=== PATIENT | male | born 1930 | race American Indian/Alaskan Native ===

== ENCOUNTER 2019-03-20 12:52 | Inpatient (IN) | payer MEDICARE, OTHER ==
[2019-03-20] MEDS ORDERED: HALOPERIDOL LACTATE 5 MG/1 ML INJ IM PRN (13:11)
[2019-03-20] MEDS ORDERED: LORazepam 2 MG/ML VIAL IM PRN (13:11)
[2019-03-20] MEDS ORDERED: traZODone 50 MG TAB PO PRN (13:16)
[2019-03-20 19:04] LABS: Basophils % (Auto) 0.6 % (0.0-1.8); Eosinophils # (Auto) 0.1 K/mm3 (0.0-0.4); Eosinophils % (Auto) 1.8 % (0.0-4.3); Hematocrit 37.8 % (35.5-45.6); Hemoglobin 12.4 gm/dl (11.8-15.2); Lymphocytes # (Auto) 1.5 K/mm3 (1.2-5.4); Mean Corpuscular HGB Conc 33 % (32-34); Mean Corpuscular Volume 90 fl (84-94); Monocytes # (Auto) 0.5 K/mm3 (0.0-0.8); Monocytes % (Auto) 8.9 % (0.0-7.3); Platelet Count 199 K/mm3 (140-440); Red Blood Count 4.21 M/mm3 (3.65-5.03)
[2019-03-20 19:21] LABS: Albumin 3.3 g/dL (3.9-5); BUN/Creatinine Ratio 9; Blood Urea Nitrogen 6 mg/dL (9-20); Calcium 8.8 mg/dL (8.4-10.2); Chol/HDL Ratio 2.28 %; HDL Cholesterol 60 mg/dL (40-59); Hemolysis Index 0; LDL Cholesterol,Direct 75 mg/dL (50-130)
[2019-03-20 19:23] LABS: Alanine Aminotransferase < 5 units/L (7-56)
[2019-03-20] MEDS: MELATONIN 5 MG TAB PO SCH (21:08)
[2019-03-20] MEDS: levETIRAcetam 500 MG TAB PO SCH (21:08)
[2019-03-20] MEDS: DONEPEZIL 5 MG TAB PO SCH (21:08)
[2019-03-20] MEDS: METOPROLOL TARTRATE 25 MG TAB PO SCH (21:08)
[2019-03-20] MEDS: INSULIN LISPRO 100 UNIT/ML SUB-Q SCH (21:09)
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
[2019-03-21] MEDS ORDERED: SITAGLIPTIN PHOSPHATE 50 MG PO SCH (10:00)
[2019-03-21] MEDS: LINAGLIPTIN 5 MG TAB PO SCH (10:28)
[2019-03-21] MEDS: ASPIRIN EC 81 MG TAB PO SCH (10:28)
[2019-03-21] MEDS: levETIRAcetam 500 MG TAB PO SCH ×2 (10:28→21:05)
[2019-03-21] MEDS: RIVAROXABAN 20 MG TAB PO SCH (10:28)
[2019-03-21] MEDS: FAMOTIDINE 20 MG TAB PO SCH (10:28)
[2019-03-21] MEDS: amLODIPine 5 MG TAB PO SCH (10:29)
[2019-03-21] MEDS: INSULIN LISPRO 100 UNIT/ML SUB-Q SCH ×4 (10:30→21:05)
[2019-03-21] MEDS: METOPROLOL TARTRATE 25 MG TAB PO SCH ×2 (10:31→21:05)
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
[2019-03-21] MEDS ORDERED: POTASSIUM CHLORIDE ER 20 MEQ TAB PO ONE (11:15)
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
[2019-03-21] MEDS: DONEPEZIL 5 MG TAB PO SCH (21:04)
[2019-03-21] MEDS: MELATONIN 5 MG TAB PO SCH (21:05)
[2019-03-22] MEDS: INSULIN LISPRO 100 UNIT/ML SUB-Q SCH ×4 (07:44→21:16)
[2019-03-22] MEDS: METOPROLOL TARTRATE 25 MG TAB PO SCH ×2 (09:31→21:17)
[2019-03-22] MEDS: RIVAROXABAN 20 MG TAB PO SCH (09:31)
[2019-03-22] MEDS: FAMOTIDINE 20 MG TAB PO SCH (09:32)
[2019-03-22] MEDS: levETIRAcetam 500 MG TAB PO SCH ×2 (09:32→21:14)
[2019-03-22] MEDS: amLODIPine 5 MG TAB PO SCH (09:32)
[2019-03-22] MEDS: ASPIRIN EC 81 MG TAB PO SCH (09:32)
[2019-03-22] MEDS: LINAGLIPTIN 5 MG TAB PO SCH (09:32)
--- NOTE | 2019-03-22 10:32 | Progress Note ---
Subjective Date of service: 03/22/19 Principal diagnosis: Paranoid Schizophrenia Subjective Comment: The patient was interviewed by me this morning. Medical records reviewed and patient's progress was discussed with unit staff. In my interview with the patient this morning, he stated that he was in a good mood. Still contends that he is fine and that the only reason he is here is because his put him here. Patient claims ever since he was declared 100% disabled "uncle Jt" released his money and benefits to his . The patient believes that he has to defend himself from his and the law, and that he is not being given a fighting chance. The patient is delusional in areas and competent in others. The patients hearing is also failing and is in desperate need of his hearing aids. Review of Symptoms: Constitutional: Negative for weight lost ENT: Negative for stridor Respiratory: Negative for cough or hemoptysis All other systems reviewed and are negative MSE Appearance: Wearing appropriate clothings. Good hygiene Behavior: Pleasant and cooperative. Mood: "Good" Affect: Congruent with stated mood Thought Process: Goal directed Speech: Normal rate. Thought Content Harmfulness Denies SI/HI Hallucinations: patient denies Delusions: ?Paranoia Consciousness: alert. Cognition/Memory: normal. Insight/Judgment: Limited. Objective - Criteria for Continued Treatment Criteria for Continued Treatment: Improving Level of Functioning, Stablizing Level of Functioning, Improving Emotional/Socia - Objective Observation Participation Level: Moderate Assessment and Plan - Patient Problems (1) Paranoid schizophrenia Current Visit: Yes Status: Acute Plan to address problem: Diagnoses: Treatment Plan Patient will be admitted for inpatient psychiatric evaluation, medication adjustment and close monitoring The patient's behavior, mood, sleep and appetite will be closely monitored. Patient will be enrolled in individual and group therapeutic sessions and encouraged to attend. Patient will be provided with a safe and structured environment. Patient's physical health needs will be addressed by the Hospitalist. Social Assessment will be completed and the Brush Polisher will work with patient and family to ensure a suitable and safe disposition Medication adjustment will be made as clinically indicated Usual Wellness Faith/Preservation: - Trazodone 50 mg po QHS & 50 mg po QHS PRN between 10 PM & 2 AM for insomnia - Melatonin 5 mg po QHS to promote circadian rhythm - [place]-3 for brain health, reduce impulsivity, and as adjunctive treatment for mood disorder, continue upon discharge given overall benefits. - B1 prophylaxis with 200 mg po for 5 days The patient agreed on the treatment plan, understood the risk, benefit, alternative treatment, potential consequence of no treatment, and gave informed consent. Medications and Allergies Allergies Allergy/AdvReac Type Severity Reaction Status Date / Time Sulfa (Sulfonamide Allergy Unknown Verified 03/20/19 14:16 Antibiotics) Home Medications Medication Instructions Recorded Confirmed Last Taken Type Amlodipine Besylate [Norvasc] 5 mg PO DAILY 03/20/19 03/20/19 Unknown History Aspirin EC [Halfprin EC] 81 mg PO QDAY 03/20/19 03/20/19 Unknown History Donepezil [Aricept] 5 mg PO HS 03/20/19 03/20/19 Unknown History Famotidine [Pepcid] 20 mg PO DAILY 03/20/19 03/20/19 Unknown History Lispro Insulin [HumaLOG] 0 unit SQ QID 03/20/19 03/20/19 Unknown History Metoprolol [Lopressor] 25 mg PO BID 03/20/19 03/20/19 Unknown History Rivaroxaban [Xarelto] 20 mg PO QDAY 03/20/19 03/20/19 Unknown History Sitagliptin Phosphate [Januvia] 50 mg PO DAILY 03/20/19 03/20/19 Unknown History levETIRAcetam [Keppra TAB] 500 mg PO BID 03/20/19 03/20/19 Unknown History Active Meds: Active Medications Amlodipine Besylate (Amlodipine) 5 mg PO DAILY [facility] Last Admin: 03/22/19 09:32 Dose: 5 mg Documented by: Aspirin (Halfprin Ec) 81 mg PO QDAY [facility] Last Admin: 03/22/19 09:32 Dose: 81 mg Documented by: Donepezil HCl (Aricept) 5 mg PO HS [facility] Last Admin: 03/21/19 21:04 Dose: 5 mg Documented by: Famotidine (Pepcid) 20 mg PO DAILY [facility] Last Admin: 03/22/19 09:32 Dose: 20 mg Documented by: Haloperidol Lactate (Haldol) 5 mg IM Q6H PRN PRN Reason: Agitation Insulin Human Lispro (Humalog) 0 unit SUB-Q ACHS [facility] Last Admin: 03/22/19 07:44 Dose: Not Given Documented by: Levetiracetam (Keppra) 500 mg PO BID [facility] Last Admin: 03/22/19 09:32 Dose: 500 mg Documented by: Linagliptin (Tradjenta) 5 mg PO QDAY [facility] Last Admin: 03/22/19 09:32 Dose: 5 mg Documented by: Lorazepam (Ativan) 1 mg IM Q6H PRN PRN Reason: Agitation Melatonin (Melatonin) 5 mg PO QHS [facility] Last Admin: 03/21/19 21:05 Dose: 5 mg Documented by: Metoprolol Tartrate (Metoprolol) 25 mg PO BID [facility] Last Admin: 03/22/19 09:31 Dose: 25 mg Documented by: Rivaroxaban (Xarelto) 20 mg PO QDAY [facility]; Protocol Last Admin: 03/22/19 09:31 Dose: 20 mg Documented by: Trazodone HCl (Desyrel) 50 mg PO QHS PRN PRN Reason: insomnia Results - Results Labs/Vitals: Laboratory Last Values WBC 5.7 K/mm3 (4.5-11.0) 03/20/19 18:25 RBC 4.21 M/mm3 (3.65-5.03) 03/20/19 18:25 Hgb 12.4 gm/dl (11.8-15.2) 03/20/19 18:25 Hct 37.8 % (35.5-45.6) 03/20/19 18:25 MCV 90 fl (84-94) 03/20/19 18:25 MCH 30 pg (28-32) 03/20/19 18:25 MCHC 33 % (32-34) 03/20/19 18:25 RDW 16.0 % (13.2-15.2) H 03/20/19 18:25 Plt Count 199 K/mm3 (140-440) 03/20/19 18:25 Lymph % (Auto) 26.0 % (13.4-35.0) 03/20/19 18:25 [place] % (Auto) 8.9 % (0.0-7.3) H 03/20/19 18:25 Eos % (Auto) 1.8 % (0.0-4.3) 03/20/19 18:25 Baso % (Auto) 0.6 % (0.0-1.8) 03/20/19 18:25 Lymph # 1.5 K/mm3 (1.2-5.4) 03/20/19 18:25 [place] # 0.5 K/mm3 (0.0-0.8) 03/20/19 18:25 Eos # 0.1 K/mm3 (0.0-0.4) 03/20/19 18:25 Baso # 0.0 K/mm3 (0.0-0.1) 03/20/19 18:25 Seg Neutrophils % 62.7 % (40.0-70.0) 03/20/19 18:25 Seg Neutrophils # 3.6 K/mm3 (1.8-7.7) 03/20/19 18:25 Sodium 142 mmol/L (137-145) 03/20/19 18:25 Potassium 3.4 mmol/L (3.6-5.0) L 03/22/19 08:07 Chloride 102.6 mmol/L (98-107) 03/20/19 18:25 Carbon Dioxide 26 mmol/L (22-30) 03/20/19 18:25 Anion Gap 16 mmol/L 03/20/19 18:25 BUN 6 mg/dL (9-20) L 03/20/19 18:25 Creatinine 0.7 mg/dL (0.8-1.5) L 03/20/19 18:25 Estimated GFR > 60 ml/min 03/20/19 18:25 BUN/Creatinine Ratio 9 % 03/20/19 18:25 Glucose 167 mg/dL (75-100) H 03/20/19 18:25 POC Glucose 78 (70-105) 03/22/19 06:26 Hemoglobin A1c 5.4 % (4-6) 03/20/19 18:25 Calcium 8.8 mg/dL (8.4-10.2) 03/20/19 18:25 Total Bilirubin 0.60 mg/dL (0.1-1.2) 03/20/19 18:25 AST 11 units/L (5-40) 03/20/19 18:25 ALT < 5 units/L (7-56) L 03/20/19 18:25 Alkaline Phosphatase 87 units/L (35-129) 03/20/19 18:25 Total Protein 7.0 g/dL (6.3-8.2) 03/20/19 18:25 Albumin 3.3 g/dL (3.9-5) L 03/20/19 18:25 Albumin/Globulin Ratio 0.9 % 03/20/19 18:25 Triglycerides 58 mg/dL (2-149) 03/20/19 18:25 Cholesterol 137 mg/dL (50-199) 03/20/19 18:25 LDL Cholesterol Direct 75 mg/dL (50-130) 03/20/19 18:25 HDL Cholesterol 60 mg/dL (40-59) H 03/20/19 18:25 Cholesterol/HDL Ratio 2.28 % 03/20/19 18:25 Last Vital Signs Temp 98.3 F 03/22/19 08:57 Pulse 73 03/22/19 09:32 Resp 16 03/22/19 08:57 BP 140/70 03/22/19 09:32 Pulse Ox 97 03/22/19 08:57
[2019-03-22] MEDS: risperiDONE 0.25 MG TAB PO SCH ×2 (12:26→21:14)
[2019-03-22] MEDS: THIAMINE 100 MG TAB PO SCH (12:26)
[2019-03-22] MEDS: OMEGA-3 FATTY ACIDS/FISH OIL 1 GRAM CAP PO SCH ×2 (12:27→21:14)
[2019-03-22] MEDS: DONEPEZIL 5 MG TAB PO SCH (21:14)
[2019-03-22] MEDS: MELATONIN 5 MG TAB PO SCH (21:14)
[2019-03-23] MEDS: INSULIN LISPRO 100 UNIT/ML SUB-Q SCH (07:15)
[2019-03-23] MEDS ORDERED: POTASSIUM CHLORIDE ER 20 MEQ TAB PO ONE (09:00)
[2019-03-23] MEDS: ASPIRIN EC 81 MG TAB PO SCH (09:03)
[2019-03-23] MEDS: METOPROLOL TARTRATE 25 MG TAB PO SCH ×2 (09:03→21:14)
[2019-03-23] MEDS: risperiDONE 0.25 MG TAB PO SCH ×2 (09:03→21:14)
[2019-03-23] MEDS: amLODIPine 5 MG TAB PO SCH (09:04)
[2019-03-23] MEDS: FAMOTIDINE 20 MG TAB PO SCH (09:04)
[2019-03-23] MEDS: THIAMINE 100 MG TAB PO SCH (09:04)
[2019-03-23] MEDS: levETIRAcetam 500 MG TAB PO SCH ×2 (09:04→21:14)
[2019-03-23] MEDS: RIVAROXABAN 20 MG TAB PO SCH (09:05)
[2019-03-23] MEDS: LINAGLIPTIN 5 MG TAB PO SCH (09:05)
[2019-03-23] MEDS: OMEGA-3 FATTY ACIDS/FISH OIL 1 GRAM CAP PO SCH ×2 (09:05→21:13)
--- NOTE | 2019-03-23 11:10 | Progress Note ---
Subjective Date of service: 03/23/19 Principal diagnosis: Paranoid Schizophrenia Subjective Comment: The patient was interviewed by me this morning. Medical records reviewed and patient's progress was discussed with unit staff. Per Nursing Staff, cjient was calm and cooperative all evening. He was medication compliant. After getting warm the patient slept all night. In my interview with the patient this morning, Mr. Mendoza stated that he was feeling great, slept well and his appetite is good.The patient is very competent and engaging. Review of Symptoms: Constitutional: Negative for weight lost ENT: Negative for stridor Respiratory: Negative for cough or hemoptysis All other systems reviewed and are negative MSE Appearance: Wearing appropriate clothings. Good hygiene Behavior: Pleasant and cooperative. Mood: "Good" Affect: Congruent with stated mood Thought Process: Goal directed Speech: Normal rate. Thought Content Harmfulness Denies SI/HI Hallucinations: patient denies Delusions: None elicited Consciousness: alert. Cognition/Memory: normal. Insight/Judgment: Fair Objective - Criteria for Continued Treatment Criteria for Continued Treatment: Stablizing Level of Functioning - Objective Observation Participation Level: Moderate Assessment and Plan - Patient Problems (1) Paranoid schizophrenia Current Visit: Yes Status: Acute Plan to address problem: Diagnoses: Treatment Plan Patient will be admitted for inpatient psychiatric evaluation, medication adjustment and close monitoring The patient's behavior, mood, sleep and appetite will be closely monitored. Patient will be enrolled in individual and group therapeutic sessions and encouraged to attend. Patient will be provided with a safe and structured environment. Patient's physical health needs will be addressed by the Hospitalist. Social Assessment will be completed and the Maintenance Tech will work with patient and family to ensure a suitable and safe disposition Medication adjustment will be made as clinically indicated Usual Wellness Sikhism/Preservation: - Trazodone 50 mg po QHS & 50 mg po QHS PRN between 10 PM & 2 AM for insomnia - Melatonin 5 mg po QHS to promote circadian rhythm - [place]-3 for brain health, reduce impulsivity, and as adjunctive treatment for mood disorder, continue upon discharge given overall benefits. The patient agreed on the treatment plan, understood the risk, benefit, alternative treatment, potential consequence of no treatment, and gave informed consent. Medications and Allergies Allergies Allergy/AdvReac Type Severity Reaction Status Date / Time Sulfa (Sulfonamide Allergy Unknown Verified 03/20/19 14:16 Antibiotics) Home Medications Medication Instructions Recorded Confirmed Last Taken Type Amlodipine Besylate [Norvasc] 5 mg PO DAILY 03/20/19 03/20/19 Unknown History Aspirin EC [Halfprin EC] 81 mg PO QDAY 03/20/19 03/20/19 Unknown History Donepezil [Aricept] 5 mg PO HS 03/20/19 03/20/19 Unknown History Famotidine [Pepcid] 20 mg PO DAILY 03/20/19 03/20/19 Unknown History Lispro Insulin [HumaLOG] 0 unit SQ QID 03/20/19 03/20/19 Unknown History Metoprolol [Lopressor] 25 mg PO BID 03/20/19 03/20/19 Unknown History Rivaroxaban [Xarelto] 20 mg PO QDAY 03/20/19 03/20/19 Unknown History Sitagliptin Phosphate [Januvia] 50 mg PO DAILY 03/20/19 03/20/19 Unknown History levETIRAcetam [Keppra TAB] 500 mg PO BID 03/20/19 03/20/19 Unknown History Active Meds: Active Medications Amlodipine Besylate (Amlodipine) 5 mg PO DAILY [facility] Last Admin: 03/23/19 09:04 Dose: Not Given Documented by: Aspirin (Halfprin Ec) 81 mg PO QDAY [facility] Last Admin: 03/23/19 09:03 Dose: 81 mg Documented by: Donepezil HCl (Aricept) 5 mg PO [facility] Last Admin: 03/22/19 21:14 Dose: 5 mg Documented by: Famotidine (Pepcid) 20 mg PO DAILY [facility] Last Admin: 03/23/19 09:04 Dose: 20 mg Documented by: Fish Oil (Fish Oil) 2,000 mg PO BID [facility] Last Admin: 03/23/19 09:05 Dose: 2,000 mg Documented by: Haloperidol Lactate (Haldol) 5 mg IM Q6H PRN PRN Reason: Agitation Insulin Human Regular (Humulin R) 0 units SUB-Q [facility]; Protocol Levetiracetam (Keppra) 500 mg PO BID [facility] Last Admin: 03/23/19 09:04 Dose: 500 mg Documented by: Linagliptin (Tradjenta) 5 mg PO QDAY [facility] Last Admin: 03/23/19 09:05 Dose: 5 mg Documented by: Lorazepam (Ativan) 1 mg IM Q6H PRN PRN Reason: Agitation Melatonin (Melatonin) 5 mg PO QHS [facility] Last Admin: 03/22/19 21:14 Dose: 5 mg Documented by: Metoprolol Tartrate (Metoprolol) 25 mg PO BID [facility] Last Admin: 03/23/19 09:03 Dose: 25 mg Documented by: Risperidone (Risperdal) 0.5 mg PO BID [facility] Last Admin: 03/23/19 09:03 Dose: 0.5 mg Documented by: Rivaroxaban (Xarelto) 20 mg PO QDAY [facility]; Protocol Last Admin: 03/23/19 09:05 Dose: 20 mg Documented by: Thiamine HCl (Vitamin B-1) 100 mg PO QDAY [facility] Last Admin: 03/23/19 09:04 Dose: 100 mg Documented by: Trazodone HCl (Desyrel) 50 mg PO QHS PRN PRN Reason: insomnia Results - Results Labs/Vitals: Laboratory Last Values WBC 5.7 K/mm3 (4.5-11.0) 03/20/19 18:25 RBC 4.21 M/mm3 (3.65-5.03) 03/20/19 18:25 Hgb 12.4 gm/dl (11.8-15.2) 03/20/19 18:25 Hct 37.8 % (35.5-45.6) 03/20/19 18:25 MCV 90 fl (84-94) 03/20/19 18:25 MCH 30 pg (28-32) 03/20/19 18:25 MCHC 33 % (32-34) 03/20/19 18:25 RDW 16.0 % (13.2-15.2) H 03/20/19 18:25 Plt Count 199 K/mm3 (140-440) 03/20/19 18:25 Lymph % (Auto) 26.0 % (13.4-35.0) 03/20/19 18:25 [place] % (Auto) 8.9 % (0.0-7.3) H 03/20/19 18:25 Eos % (Auto) 1.8 % (0.0-4.3) 03/20/19 18:25 Baso % (Auto) 0.6 % (0.0-1.8) 03/20/19 18:25 Lymph # 1.5 K/mm3 (1.2-5.4) 03/20/19 18:25 [place] # 0.5 K/mm3 (0.0-0.8) 03/20/19 18:25 Eos # 0.1 K/mm3 (0.0-0.4) 03/20/19 18:25 Baso # 0.0 K/mm3 (0.0-0.1) 03/20/19 18:25 Seg Neutrophils % 62.7 % (40.0-70.0) 03/20/19 18:25 Seg Neutrophils # 3.6 K/mm3 (1.8-7.7) 03/20/19 18:25 Sodium 142 mmol/L (137-145) 03/20/19 18:25 Potassium 3.4 mmol/L (3.6-5.0) L 03/22/19 08:07 Chloride 102.6 mmol/L (98-107) 03/20/19 18:25 Carbon Dioxide 26 mmol/L (22-30) 03/20/19 18:25 Anion Gap 16 mmol/L 03/20/19 18:25 BUN 6 mg/dL (9-20) L 03/20/19 18:25 Creatinine 0.7 mg/dL (0.8-1.5) L 03/20/19 18:25 Estimated GFR > 60 ml/min 03/20/19 18:25 BUN/Creatinine Ratio 9 % 03/20/19 18:25 Glucose 167 mg/dL (75-100) H 03/20/19 18:25 POC Glucose 86 (70-105) 03/23/19 07:23 Hemoglobin A1c 5.4 % (4-6) 03/20/19 18:25 Calcium 8.8 mg/dL (8.4-10.2) 03/20/19 18:25 Total Bilirubin 0.60 mg/dL (0.1-1.2) 03/20/19 18:25 AST 11 units/L (5-40) 03/20/19 18:25 ALT < 5 units/L (7-56) L 03/20/19 18:25 Alkaline Phosphatase 87 units/L (35-129) 03/20/19 18:25 Total Protein 7.0 g/dL (6.3-8.2) 03/20/19 18:25 Albumin 3.3 g/dL (3.9-5) L 03/20/19 18:25 Albumin/Globulin Ratio 0.9 % 03/20/19 18:25 Triglycerides 58 mg/dL (2-149) 03/20/19 18:25 Cholesterol 137 mg/dL (50-199) 03/20/19 18:25 LDL Cholesterol Direct 75 mg/dL (50-130) 03/20/19 18:25 HDL Cholesterol 60 mg/dL (40-59) H 03/20/19 18:25 Cholesterol/HDL Ratio 2.28 % 03/20/19 18:25 Last Vital Signs Temp 98.3 F 03/23/19 08:28 Pulse 67 03/23/19 09:04 Resp 16 03/23/19 08:28 BP 99/53 03/23/19 09:04 Pulse Ox 99 03/23/19 08:28
--- NOTE | 2019-03-23 11:22 | XRay Report ---
CHEST 2 VIEWS INDICATION: TB Screening for NH placement. COMPARISON: None FINDINGS: Support devices: None. Heart: Within normal limits. Lungs/pleura: No acute air space or interstitial disease. No pneumothorax. Additional findings: None. IMPRESSION: Unremarkable chest films. No evidence for primary or reactive tuberculosis on chest x-ray. Signer Name: Pranav Woods Jr, MD Signed: 03/23/2019 11:17 AM Workstation Name: [id number]
[2019-03-23] MEDS: INSULIN REGULAR, HUMAN 100 UNITS/1 ML SUB-Q SCH ×3 (12:04→21:16)
[2019-03-23] MEDS: DONEPEZIL 5 MG TAB PO SCH (21:13)
[2019-03-23] MEDS: MELATONIN 5 MG TAB PO SCH (21:14)
[2019-03-24] MEDS: LINAGLIPTIN 5 MG TAB PO SCH (11:29)
[2019-03-24] MEDS: FAMOTIDINE 20 MG TAB PO SCH (11:29)
[2019-03-24] MEDS: OMEGA-3 FATTY ACIDS/FISH OIL 1 GRAM CAP PO SCH ×2 (11:29→21:16)
[2019-03-24] MEDS: risperiDONE 0.25 MG TAB PO SCH ×2 (11:29→21:15)
[2019-03-24] MEDS: THIAMINE 100 MG TAB PO SCH (11:29)
[2019-03-24] MEDS: amLODIPine 5 MG TAB PO SCH (11:30)
[2019-03-24] MEDS: levETIRAcetam 500 MG TAB PO SCH ×2 (11:30→21:16)
[2019-03-24] MEDS: ASPIRIN EC 81 MG TAB PO SCH (11:30)
[2019-03-24] MEDS: METOPROLOL TARTRATE 25 MG TAB PO SCH ×2 (11:30→21:16)
[2019-03-24] MEDS: INSULIN REGULAR, HUMAN 100 UNITS/1 ML SUB-Q SCH ×2 (11:32→21:46)
[2019-03-24] MEDS: RIVAROXABAN 20 MG TAB PO SCH (11:33)
--- NOTE | 2019-03-24 17:06 | Progress Note ---
Assessment and Plan Assessment and plan: --Paranoid schizophrenia Management per psych --hypokalemia, repleted --Dementia: Continue supportive care --HTN; moderate control Stable on current antihypertensives and PRN medications --History of CVA ; stable --Atrial fib: Rate controlled Continue current beta-blockers Chronic anticoagulation with Xarelto --Type II DM; Accu-Chek sliding scale coverage ADA diet Insulin as needed --Seizure; seizure precautions Antiepileptic medications Continue current management Plan of care reviewed with the patient and his nurse Rest of the management per psych History Interval history: Patient seen in the activity room and examined medical records reviewed,Wants to go home Patient feels slightly better no new complaints Vital signs noted Hospitalist Physical - Constitutional Vitals: Temp Pulse Resp BP Pulse Ox 97.9 F 88 16 124/69 97 03/24/19 09:12 03/24/19 11:30 03/24/19 09:12 03/24/19 11:30 03/24/19 09:12 General appearance: Present: no acute distress, well-nourished - EENT Eyes: Present: PERRL, EOM intact - Neck Neck: Present: supple, normal ROM - Respiratory Respiratory effort: normal Respiratory: bilateral: diminished, negative: rales, rhonchi, wheezing - Cardiovascular Rhythm: regular Heart Sounds: Present: S1 & S2 - Extremities Extremities: no ischemia, No edema - Abdominal General gastrointestinal: soft, non-tender, non-distended, normal bowel sounds - Integumentary Integumentary: Present: clear, warm - Psychiatric Psychiatric: appropriate mood/affect, cooperative - Neurologic Neurologic: moves all extremities Results - Labs CBC & Chem 7: 03/20/19 18:25 03/22/19 08:07 Labs: Laboratory Last Values WBC 5.7 K/mm3 (4.5-11.0) 03/20/19 18:25 RBC 4.21 M/mm3 (3.65-5.03) 03/20/19 18:25 Hgb 12.4 gm/dl (11.8-15.2) 03/20/19 18:25 Hct 37.8 % (35.5-45.6) 03/20/19 18:25 MCV 90 fl (84-94) 03/20/19 18:25 MCH 30 pg (28-32) 03/20/19 18:25 MCHC 33 % (32-34) 03/20/19 18:25 RDW 16.0 % (13.2-15.2) H 03/20/19 18:25 Plt Count 199 K/mm3 (140-440) 03/20/19 18:25 Lymph % (Auto) 26.0 % (13.4-35.0) 03/20/19 18:25 [place] % (Auto) 8.9 % (0.0-7.3) H 03/20/19 18:25 Eos % (Auto) 1.8 % (0.0-4.3) 03/20/19 18:25 Baso % (Auto) 0.6 % (0.0-1.8) 03/20/19 18:25 Lymph # 1.5 K/mm3 (1.2-5.4) 03/20/19 18:25 [place] # 0.5 K/mm3 (0.0-0.8) 03/20/19 18:25 Eos # 0.1 K/mm3 (0.0-0.4) 03/20/19 18:25 Baso # 0.0 K/mm3 (0.0-0.1) 03/20/19 18:25 Seg Neutrophils % 62.7 % (40.0-70.0) 03/20/19 18:25 Seg Neutrophils # 3.6 K/mm3 (1.8-7.7) 03/20/19 18:25 Sodium 142 mmol/L (137-145) 03/20/19 18:25 Potassium 3.4 mmol/L (3.6-5.0) L 03/22/19 08:07 Chloride 102.6 mmol/L (98-107) 03/20/19 18:25 Carbon Dioxide 26 mmol/L (22-30) 03/20/19 18:25 Anion Gap 16 mmol/L 03/20/19 18:25 BUN 6 mg/dL (9-20) L 03/20/19 18:25 Creatinine 0.7 mg/dL (0.8-1.5) L 03/20/19 18:25 Estimated GFR > 60 ml/min 03/20/19 18:25 BUN/Creatinine Ratio 9 % 03/20/19 18:25 Glucose 167 mg/dL (75-100) H 03/20/19 18:25 POC Glucose 150 (70-105) H 03/24/19 16:44 Hemoglobin A1c 5.4 % (4-6) 03/20/19 18:25 Calcium 8.8 mg/dL (8.4-10.2) 03/20/19 18:25 Total Bilirubin 0.60 mg/dL (0.1-1.2) 03/20/19 18:25 AST 11 units/L (5-40) 03/20/19 18:25 ALT < 5 units/L (7-56) L 03/20/19 18:25 Alkaline Phosphatase 87 units/L (35-129) 03/20/19 18:25 Total Protein 7.0 g/dL (6.3-8.2) 03/20/19 18:25 Albumin 3.3 g/dL (3.9-5) L 03/20/19 18:25 Albumin/Globulin Ratio 0.9 % 03/20/19 18:25 Triglycerides 58 mg/dL (2-149) 03/20/19 18:25 Cholesterol 137 mg/dL (50-199) 03/20/19 18:25 LDL Cholesterol Direct 75 mg/dL (50-130) 03/20/19 18:25 HDL Cholesterol 60 mg/dL (40-59) H 03/20/19 18:25 Cholesterol/HDL Ratio 2.28 % 03/20/19 18:25 Active Medications - Current Medications Current Medications: Generic Name Dose Route Start Last Admin Trade Name Freq PRN Reason Stop Dose Admin Amlodipine Besylate 5 mg 03/21/19 10:00 03/24/19 11:30 Amlodipine PO 5 mg DAILY [facility] Administration Aspirin 81 mg 03/21/19 10:00 03/24/19 11:30 Halfprin Ec PO 81 mg QDAY [facility] Administration Donepezil HCl 5 mg 03/20/19 22:00 03/23/19 21:13 Aricept PO 5 mg HS [facility] Administration Famotidine 20 mg 03/21/19 10:00 03/24/19 11:29 Pepcid PO 20 mg DAILY [facility] Administration Fish Oil 2,000 mg 03/22/19 12:00 03/24/19 11:29 Fish Oil PO 2,000 mg BID [facility] Administration Haloperidol Lactate 5 mg 03/20/19 13:11 Haldol IM Q6H PRN Agitation Insulin Human Regular 0 units 03/23/19 11:30 03/24/19 11:32 Humulin R SUB-Q Not Given ACHS [facility] Protocol Levetiracetam 500 mg 03/20/19 22:00 03/24/19 11:30 Keppra PO 500 mg BID [facility] Administration Linagliptin 5 mg 03/21/19 10:00 03/24/19 11:29 Tradjenta PO 5 mg QDAY [facility] Administration Lorazepam 1 mg 03/20/19 13:11 Ativan IM Q6H PRN Agitation Melatonin 5 mg 03/20/19 22:00 03/23/19 21:14 Melatonin PO 5 mg QHS [facility] Administration Metoprolol Tartrate 25 mg 03/20/19 22:00 03/24/19 11:30 Metoprolol PO 25 mg BID [facility] Administration Risperidone 0.5 mg 03/22/19 12:00 03/24/19 11:29 Risperdal PO 0.5 mg BID [facility] Administration Rivaroxaban 20 mg 03/21/19 10:00 03/24/19 11:33 Xarelto PO 20 mg QDAY [facility] Administration Protocol Thiamine HCl 100 mg 03/22/19 12:00 03/24/19 11:29 Vitamin B-1 PO 100 mg QDAY [facility] Administration Trazodone HCl 50 mg 03/20/19 13:16 Desyrel PO QHS PRN insomnia
[2019-03-24] MEDS: MELATONIN 5 MG TAB PO SCH (21:15)
[2019-03-24] MEDS: DONEPEZIL 5 MG TAB PO SCH (21:16)
--- NOTE | 2019-03-25 07:36 | Progress Note ---
Subjective Date of service: 03/24/19 Principal diagnosis: Paranoid Schizophrenia Subjective Comment: The patient was interviewed by me this morning. Medical records reviewed and patient's progress was discussed with unit staff. Per Nursing Staff, cjient was calm and cooperative all evening. He was medication compliant. After getting warm the patient slept all night. In my interview with the patient this morning, Mr. Mendoza stated that he was feeling great, slept well and his appetite is good.The patient is very competent and engaging. Review of Symptoms: Constitutional: Negative for weight lost ENT: Negative for stridor Respiratory: Negative for cough or hemoptysis All other systems reviewed and are negative MSE Appearance: Wearing appropriate clothings. Good hygiene Behavior: Pleasant and cooperative. Mood: "Good" Affect: Congruent with stated mood Thought Process: Goal directed Speech: Normal rate. Thought Content Harmfulness Denies SI/HI Hallucinations: patient denies Delusions: None elicited Consciousness: alert. Cognition/Memory: normal. Insight/Judgment: Fair Objective - Criteria for Continued Treatment Criteria for Continued Treatment: Stablizing Level of Functioning - Mental Status Mental Status: Alert - Objective Observation Participation Level: Full Assessment and Plan - Patient Problems (1) Paranoid schizophrenia Current Visit: Yes Status: Acute Plan to address problem: Diagnoses: Treatment Plan Patient will be admitted for inpatient psychiatric evaluation, medication adjustment and close monitoring The patient's behavior, mood, sleep and appetite will be closely monitored. Patient will be enrolled in individual and group therapeutic sessions and encouraged to attend. Patient will be provided with a safe and structured environment. Patient's physical health needs will be addressed by the Hospitalist. Social Assessment will be completed and the Interlibrary Loan Specialist will work with patient and family to ensure a suitable and safe disposition Medication adjustment will be made as clinically indicated The patient agreed on the treatment plan, understood the risk, benefit, alternative treatment, potential consequence of no treatment, and gave informed consent. Medications and Allergies Allergies Allergy/AdvReac Type Severity Reaction Status Date / Time Sulfa (Sulfonamide Allergy Unknown Verified 03/20/19 14:16 Antibiotics) Home Medications Medication Instructions Recorded Confirmed Last Taken Type Lispro Insulin [HumaLOG] 0 unit SQ QID 03/20/19 03/20/19 Unknown History Amlodipine Besylate [Norvasc] 5 mg PO DAILY #30 03/24/19 Unknown Rx Aspirin EC [Halfprin EC] 81 mg PO QDAY #30 03/24/19 Unknown Rx Donepezil [Aricept] 5 mg PO HS #30 03/24/19 Unknown Rx Famotidine [Pepcid] 20 mg PO DAILY #30 03/24/19 Unknown Rx Melatonin [Melatonin 5MG TAB] 5 mg PO QHS #30 tablet 03/24/19 Unknown Rx Metoprolol [Lopressor TAB] 25 mg PO BID #30 03/24/19 Unknown Rx [place]-3 Fatty Acids/Fish Oil [Fish 2,000 mg PO BID #120 capsule 03/24/19 Unknown Rx Oil] Rivaroxaban [Xarelto] 20 mg PO QDAY #30 03/24/19 Unknown Rx Sitagliptin Phosphate [Januvia] 50 mg PO DAILY #30 03/24/19 Unknown Rx Thiamine [Vitamin B-1] 100 mg PO QDAY #30 tablet 03/24/19 Unknown Rx levETIRAcetam [Keppra TAB] 500 mg PO BID #60 03/24/19 Unknown Rx risperiDONE [RisperDAL] 0.5 mg PO BID #60 tablet 03/24/19 Unknown Rx traZODone [Desyrel] 50 mg PO QHS PRN #30 tablet 03/24/19 Unknown Rx Active Meds: Active Medications Amlodipine Besylate (Amlodipine) 5 mg PO DAILY [facility] Last Admin: 03/24/19 11:30 Dose: 5 mg Documented by: Aspirin (Halfprin Ec) 81 mg PO QDAY [facility] Last Admin: 03/24/19 11:30 Dose: 81 mg Documented by: Donepezil HCl (Aricept) 5 mg PO HS [facility] Last Admin: 03/24/19 21:16 Dose: 5 mg Documented by: Famotidine (Pepcid) 20 mg PO DAILY [facility] Last Admin: 03/24/19 11:29 Dose: 20 mg Documented by: Fish Oil (Fish Oil) 2,000 mg PO BID [facility] Last Admin: 03/24/19 21:16 Dose: 2,000 mg Documented by: Haloperidol Lactate (Haldol) 5 mg IM Q6H PRN PRN Reason: Agitation Insulin Human Regular (Humulin R) 0 units SUB-Q ACHS [facility]; Protocol Last Admin: 03/24/19 21:46 Dose: Not Given Documented by: Levetiracetam (Keppra) 500 mg PO BID [facility] Last Admin: 03/24/19 21:16 Dose: 500 mg Documented by: Linagliptin (Tradjenta) 5 mg PO QDAY [facility] Last Admin: 03/24/19 11:29 Dose: 5 mg Documented by: Lorazepam (Ativan) 1 mg IM Q6H PRN PRN Reason: Agitation Melatonin (Melatonin) 5 mg PO QHS [facility] Last Admin: 03/24/19 21:15 Dose: 5 mg Documented by: Metoprolol Tartrate (Metoprolol) 25 mg PO BID [facility] Last Admin: 03/24/19 21:16 Dose: 25 mg Documented by: Risperidone (Risperdal) 0.5 mg PO BID [facility] Last Admin: 03/24/19 21:15 Dose: 0.5 mg Documented by: Rivaroxaban (Xarelto) 20 mg PO QDAY [facility]; Protocol Last Admin: 03/24/19 11:33 Dose: 20 mg Documented by: Thiamine HCl (Vitamin B-1) 100 mg PO QDAY [facility] Last Admin: 03/24/19 11:29 Dose: 100 mg Documented by: Trazodone HCl (Desyrel) 50 mg PO QHS PRN PRN Reason: insomnia Results - Results Labs/Vitals: Laboratory Last Values WBC 5.7 K/mm3 (4.5-11.0) 03/20/19 18:25 RBC 4.21 M/mm3 (3.65-5.03) 03/20/19 18:25 Hgb 12.4 gm/dl (11.8-15.2) 03/20/19 18:25 Hct 37.8 % (35.5-45.6) 03/20/19 18:25 MCV 90 fl (84-94) 03/20/19 18:25 MCH 30 pg (28-32) 03/20/19 18:25 MCHC 33 % (32-34) 03/20/19 18:25 RDW 16.0 % (13.2-15.2) H 03/20/19 18:25 Plt Count 199 K/mm3 (140-440) 03/20/19 18:25 Lymph % (Auto) 26.0 % (13.4-35.0) 03/20/19 18:25 [place] % (Auto) 8.9 % (0.0-7.3) H 03/20/19 18:25 Eos % (Auto) 1.8 % (0.0-4.3) 03/20/19 18:25 Baso % (Auto) 0.6 % (0.0-1.8) 03/20/19 18:25 Lymph # 1.5 K/mm3 (1.2-5.4) 03/20/19 18:25 [place] # 0.5 K/mm3 (0.0-0.8) 03/20/19 18:25 Eos # 0.1 K/mm3 (0.0-0.4) 03/20/19 18:25 Baso # 0.0 K/mm3 (0.0-0.1) 03/20/19 18:25 Seg Neutrophils % 62.7 % (40.0-70.0) 03/20/19 18:25 Seg Neutrophils # 3.6 K/mm3 (1.8-7.7) 03/20/19 18:25 Sodium 142 mmol/L (137-145) 03/20/19 18:25 Potassium 3.4 mmol/L (3.6-5.0) L 03/22/19 08:07 Chloride 102.6 mmol/L (98-107) 03/20/19 18:25 Carbon Dioxide 26 mmol/L (22-30) 03/20/19 18:25 Anion Gap 16 mmol/L 03/20/19 18:25 BUN 6 mg/dL (9-20) L 03/20/19 18:25 Creatinine 0.7 mg/dL (0.8-1.5) L 03/20/19 18:25 Estimated GFR > 60 ml/min 03/20/19 18:25 BUN/Creatinine Ratio 9 % 03/20/19 18:25 Glucose 167 mg/dL (75-100) H 03/20/19 18:25 POC Glucose 130 (70-105) H 03/24/19 19:52 Hemoglobin A1c 5.4 % (4-6) 03/20/19 18:25 Calcium 8.8 mg/dL (8.4-10.2) 03/20/19 18:25 Total Bilirubin 0.60 mg/dL (0.1-1.2) 03/20/19 18:25 AST 11 units/L (5-40) 03/20/19 18:25 ALT < 5 units/L (7-56) L 03/20/19 18:25 Alkaline Phosphatase 87 units/L (35-129) 03/20/19 18:25 Total Protein 7.0 g/dL (6.3-8.2) 03/20/19 18:25 Albumin 3.3 g/dL (3.9-5) L 03/20/19 18:25 Albumin/Globulin Ratio 0.9 % 03/20/19 18:25 Triglycerides 58 mg/dL (2-149) 03/20/19 18:25 Cholesterol 137 mg/dL (50-199) 03/20/19 18:25 LDL Cholesterol Direct 75 mg/dL (50-130) 03/20/19 18:25 HDL Cholesterol 60 mg/dL (40-59) H 03/20/19 18:25 Cholesterol/HDL Ratio 2.28 % 03/20/19 18:25 Last Vital Signs Temp 98.3 F 03/24/19 19:00 Pulse 72 03/24/19 19:11 Resp 18 03/24/19 19:00 BP 117/51 03/24/19 19:00 Pulse Ox 97 03/24/19 19:11
[2019-03-25] MEDS: INSULIN REGULAR, HUMAN 100 UNITS/1 ML SUB-Q SCH ×3 (08:28→16:46)
--- NOTE | 2019-03-25 10:00 | Discharge Summary ---
Providers - Providers Date of Admission: 03/20/19 13:06 Date of discharge: 03/25/19 Attending physician: FARTUN PAYNE MD 03/20/19 13:06 Consult to Physician [CONS] Routine Comment: Consulting Provider: NANCY BATEMAN Physician Instructions: Reason For Exam: Med management of Geripsych patient Primary care physician: FARTUN PAYNE MD Hospitalization Reason for admission: Paranoid and aggressive Condition: Stable Hospital course: The patient was provided inpatient psychiatric treatment with safe and s upportive environment, group/individual therapy, psychiatric medication, medication adjustment, adverse effect monitor, medical evaluation, medical treatment, social service assessment, social support meeting, placement assessment and psycho-education. The patients mood, cognition, behavior, motivation, compliance to treatment and appreciation on family/social support are improved and stabilized. At the time of discharge, the patient had no suicidal ideas, no homicidal ideas, no aggressive thoughts, no endangering behavior and no debilitating adverse effects. The patient agreed on the treat ent plan, understood the risk, benefit, alternative treatment, potential consequence of no treatment, and gave informed consent. Disposition: DC/[place]-[facility] Time spent for discharge: 34 minutes Allergies/Adverse Reactions: Allergies Sulfa (Sulfonamide Antibiotics) Allergy (Verified 03/20/19 14:16) Unknown Vital Signs: Last Vital Signs Temp 98.3 F 03/24/19 19:00 Pulse 72 03/24/19 19:11 Resp 18 03/24/19 19:00 BP 117/51 03/24/19 19:00 Pulse Ox 97 03/24/19 19:11 Last Lab: Laboratory Last Values WBC 5.7 K/mm3 (4.5-11.0) 03/20/19 18:25 RBC 4.21 M/mm3 (3.65-5.03) 03/20/19 18:25 Hgb 12.4 gm/dl (11.8-15.2) 03/20/19 18:25 Hct 37.8 % (35.5-45.6) 03/20/19 18:25 MCV 90 fl (84-94) 03/20/19 18:25 MCH 30 pg (28-32) 03/20/19 18:25 MCHC 33 % (32-34) 03/20/19 18:25 RDW 16.0 % (13.2-15.2) H 03/20/19 18:25 Plt Count 199 K/mm3 (140-440) 03/20/19 18:25 Lymph % (Auto) 26.0 % (13.4-35.0) 03/20/19 18:25 [place] % (Auto) 8.9 % (0.0-7.3) H 03/20/19 18:25 Eos % (Auto) 1.8 % (0.0-4.3) 03/20/19 18:25 Baso % (Auto) 0.6 % (0.0-1.8) 03/20/19 18:25 Lymph # 1.5 K/mm3 (1.2-5.4) 03/20/19 18:25 [place] # 0.5 K/mm3 (0.0-0.8) 03/20/19 18:25 Eos # 0.1 K/mm3 (0.0-0.4) 03/20/19 18:25 Baso # 0.0 K/mm3 (0.0-0.1) 03/20/19 18:25 Seg Neutrophils % 62.7 % (40.0-70.0) 03/20/19 18:25 Seg Neutrophils # 3.6 K/mm3 (1.8-7.7) 03/20/19 18:25 Sodium 142 mmol/L (137-145) 03/20/19 18:25 Potassium 3.4 mmol/L (3.6-5.0) L 03/22/19 08:07 Chloride 102.6 mmol/L (98-107) 03/20/19 18:25 Carbon Dioxide 26 mmol/L (22-30) 03/20/19 18:25 Anion Gap 16 mmol/L 03/20/19 18:25 BUN 6 mg/dL (9-20) L 03/20/19 18:25 Creatinine 0.7 mg/dL (0.8-1.5) L 03/20/19 18:25 Estimated GFR > 60 ml/min 03/20/19 18:25 BUN/Creatinine Ratio 9 % 03/20/19 18:25 Glucose 167 mg/dL (75-100) H 03/20/19 18:25 POC Glucose 86 (70-105) 03/25/19 08:08 Hemoglobin A1c 5.4 % (4-6) 03/20/19 18:25 Calcium 8.8 mg/dL (8.4-10.2) 03/20/19 18:25 Total Bilirubin 0.60 mg/dL (0.1-1.2) 03/20/19 18:25 AST 11 units/L (5-40) 03/20/19 18:25 ALT < 5 units/L (7-56) L 03/20/19 18:25 Alkaline Phosphatase 87 units/L (35-129) 03/20/19 18:25 Total Protein 7.0 g/dL (6.3-8.2) 03/20/19 18:25 Albumin 3.3 g/dL (3.9-5) L 03/20/19 18:25 Albumin/Globulin Ratio 0.9 % 03/20/19 18:25 Triglycerides 58 mg/dL (2-149) 03/20/19 18:25 Cholesterol 137 mg/dL (50-199) 03/20/19 18:25 LDL Cholesterol Direct 75 mg/dL (50-130) 03/20/19 18:25 HDL Cholesterol 60 mg/dL (40-59) H 03/20/19 18:25 Cholesterol/HDL Ratio 2.28 % 03/20/19 18:25 - Discharge Diagnoses (1) Paranoid schizophrenia Status: Acute Core Measure Documentation - Palliative Care Palliative Care/ Comfort Measures: Not Applicable - Core Measures Any of the following diagnoses?: none Exam - Constitutional Vitals: Temp Pulse Resp BP Pulse Ox 98.3 F 72 18 117/51 97 03/24/19 19:00 03/24/19 19:11 03/24/19 19:00 03/24/19 19:00 03/24/19 19:11 General appearance: Present: no acute distress, well-nourished - EENT Eyes: Present: PERRL, EOM intact ENT: clear oral mucosa, hearing decreased - Neck Neck: Present: supple, normal ROM - Respiratory Respiratory effort: normal Plan Activity: advance as tolerated, fall precautions Weight Bearing Status: Weight Bear as Tolerated Care Plan Goals: Maintain good and stable mental health Plan of Treatment: Take medications as prescribed Health Concerns: Hearing impairment Assessment: Schizzoaffective disorder Follow up with: FARTUN PAYNE MD [Primary Care Provider] - 7 Days Prescriptions: traZODone [Desyrel] 50 mg PO QHS PRN #30 tablet PRN Reason: insomnia Melatonin [Melatonin 5MG TAB] 5 mg PO QHS #30 tablet Donepezil [Aricept] 5 mg PO HS #30 [place]-3 Fatty Acids/Fish Oil [Fish Oil] 2,000 mg PO BID #120 capsule Aspirin EC [Halfprin EC] 81 mg PO QDAY #30 Sitagliptin Phosphate [Januvia] 50 mg PO DAILY #30 levETIRAcetam [Keppra TAB] 500 mg PO BID #60 Metoprolol [Lopressor TAB] 25 mg PO BID #30 Amlodipine Besylate [Norvasc] 5 mg PO DAILY #30 Famotidine [Pepcid] 20 mg PO DAILY #30 risperiDONE [RisperDAL] 0.5 mg PO BID #60 tablet Thiamine [Vitamin B-1] 100 mg PO QDAY #30 tablet Rivaroxaban [Xarelto] 20 mg PO QDAY #30
--- NOTE | 2019-03-25 10:02 | Progress Note ---
Subjective Date of service: 03/24/19 Principal diagnosis: Paranoid Schizophrenia Subjective Comment: The patient was interviewed by me this morning. Medical records reviewed and patient's progress was discussed with unit staff. Per Nursing Staff, cjient was calm and cooperative all evening. He was medication compliant. After getting warm the patient slept all night. In my interview with the patient this morning, Mr. Mendoza stated that he was feeling great, slept well and his appetite is good.The patient is very competent and engaging. Review of Symptoms: Constitutional: Negative for weight lost ENT: Negative for stridor Respiratory: Negative for cough or hemoptysis All other systems reviewed and are negative MSE Appearance: Wearing appropriate clothings. Good hygiene Behavior: Pleasant and cooperative. Mood: "Good" Affect: Congruent with stated mood Thought Process: Goal directed Speech: Normal rate. Thought Content Harmfulness Denies SI/HI Hallucinations: patient denies Delusions: None elicited Consciousness: alert. Cognition/Memory: normal. Insight/Judgment: Fair Objective - Criteria for Continued Treatment Criteria for Continued Treatment: Stablizing Level of Functioning - Mental Status Mental Status: Alert - Objective Observation Participation Level: Full Assessment and Plan - Patient Problems (1) Paranoid schizophrenia Current Visit: Yes Status: Acute Plan to address problem: Diagnoses: Treatment Plan Patient will be admitted for inpatient psychiatric evaluation, medication adjustment and close monitoring The patient's behavior, mood, sleep and appetite will be closely monitored. Patient will be enrolled in individual and group therapeutic sessions and encouraged to attend. Patient will be provided with a safe and structured environment. Patient's physical health needs will be addressed by the Hospitalist. Social Assessment will be completed and the Quilt Maker will work with patient and family to ensure a suitable and safe disposition Medication adjustment will be made as clinically indicated The patient agreed on the treatment plan, understood the risk, benefit, alternative treatment, potential consequence of no treatment, and gave informed consent. Medications and Allergies Allergies Allergy/AdvReac Type Severity Reaction Status Date / Time Sulfa (Sulfonamide Allergy Unknown Verified 03/20/19 14:16 Antibiotics) Home Medications Medication Instructions Recorded Confirmed Last Taken Type Lispro Insulin [HumaLOG] 0 unit SQ QID 03/20/19 03/20/19 Unknown History Amlodipine Besylate [Norvasc] 5 mg PO DAILY #30 03/24/19 Unknown Rx Aspirin EC [Halfprin EC] 81 mg PO QDAY #30 03/24/19 Unknown Rx Donepezil [Aricept] 5 mg PO HS #30 03/24/19 Unknown Rx Famotidine [Pepcid] 20 mg PO DAILY #30 03/24/19 Unknown Rx Melatonin [Melatonin 5MG TAB] 5 mg PO QHS #30 tablet 03/24/19 Unknown Rx Metoprolol [Lopressor TAB] 25 mg PO BID #30 03/24/19 Unknown Rx [place]-3 Fatty Acids/Fish Oil [Fish 2,000 mg PO BID #120 capsule 03/24/19 Unknown Rx Oil] Rivaroxaban [Xarelto] 20 mg PO QDAY #30 03/24/19 Unknown Rx Sitagliptin Phosphate [Januvia] 50 mg PO DAILY #30 03/24/19 Unknown Rx Thiamine [Vitamin B-1] 100 mg PO QDAY #30 tablet 03/24/19 Unknown Rx levETIRAcetam [Keppra TAB] 500 mg PO BID #60 03/24/19 Unknown Rx risperiDONE [RisperDAL] 0.5 mg PO BID #60 tablet 03/24/19 Unknown Rx traZODone [Desyrel] 50 mg PO QHS PRN #30 tablet 03/24/19 Unknown Rx Active Meds: Active Medications Amlodipine Besylate (Amlodipine) 5 mg PO DAILY [facility] Last Admin: 03/24/19 11:30 Dose: 5 mg Documented by: Aspirin (Halfprin Ec) 81 mg PO QDAY [facility] Last Admin: 03/24/19 11:30 Dose: 81 mg Documented by: Donepezil HCl (Aricept) 5 mg PO HS [facility] Last Admin: 03/24/19 21:16 Dose: 5 mg Documented by: Famotidine (Pepcid) 20 mg PO DAILY [facility] Last Admin: 03/24/19 11:29 Dose: 20 mg Documented by: Fish Oil (Fish Oil) 2,000 mg PO BID [facility] Last Admin: 03/24/19 21:16 Dose: 2,000 mg Documented by: Haloperidol Lactate (Haldol) 5 mg IM Q6H PRN PRN Reason: Agitation Insulin Human Regular (Humulin R) 0 units SUB-Q ACHS [facility]; Protocol Last Admin: 03/25/19 08:28 Dose: Not Given Documented by: Levetiracetam (Keppra) 500 mg PO BID [facility] Last Admin: 03/24/19 21:16 Dose: 500 mg Documented by: Linagliptin (Tradjenta) 5 mg PO QDAY [facility] Last Admin: 03/24/19 11:29 Dose: 5 mg Documented by: Lorazepam (Ativan) 1 mg IM Q6H PRN PRN Reason: Agitation Melatonin (Melatonin) 5 mg PO QHS [facility] Last Admin: 03/24/19 21:15 Dose: 5 mg Documented by: Metoprolol Tartrate (Metoprolol) 25 mg PO BID [facility] Last Admin: 03/24/19 21:16 Dose: 25 mg Documented by: Risperidone (Risperdal) 0.5 mg PO BID [facility] Last Admin: 03/24/19 21:15 Dose: 0.5 mg Documented by: Rivaroxaban (Xarelto) 20 mg PO QDAY [facility]; Protocol Last Admin: 03/24/19 11:33 Dose: 20 mg Documented by: Thiamine HCl (Vitamin B-1) 100 mg PO QDAY [facility] Last Admin: 03/24/19 11:29 Dose: 100 mg Documented by: Trazodone HCl (Desyrel) 50 mg PO QHS PRN PRN Reason: insomnia Results - Results Labs/Vitals: Laboratory Last Values WBC 5.7 K/mm3 (4.5-11.0) 03/20/19 18:25 RBC 4.21 M/mm3 (3.65-5.03) 03/20/19 18:25 Hgb 12.4 gm/dl (11.8-15.2) 03/20/19 18:25 Hct 37.8 % (35.5-45.6) 03/20/19 18:25 MCV 90 fl (84-94) 03/20/19 18:25 MCH 30 pg (28-32) 03/20/19 18:25 MCHC 33 % (32-34) 03/20/19 18:25 RDW 16.0 % (13.2-15.2) H 03/20/19 18:25 Plt Count 199 K/mm3 (140-440) 03/20/19 18:25 Lymph % (Auto) 26.0 % (13.4-35.0) 03/20/19 18:25 [place] % (Auto) 8.9 % (0.0-7.3) H 03/20/19 18:25 Eos % (Auto) 1.8 % (0.0-4.3) 03/20/19 18:25 Baso % (Auto) 0.6 % (0.0-1.8) 03/20/19 18:25 Lymph # 1.5 K/mm3 (1.2-5.4) 03/20/19 18:25 [place] # 0.5 K/mm3 (0.0-0.8) 03/20/19 18:25 Eos # 0.1 K/mm3 (0.0-0.4) 03/20/19 18:25 Baso # 0.0 K/mm3 (0.0-0.1) 03/20/19 18:25 Seg Neutrophils % 62.7 % (40.0-70.0) 03/20/19 18:25 Seg Neutrophils # 3.6 K/mm3 (1.8-7.7) 03/20/19 18:25 Sodium 142 mmol/L (137-145) 03/20/19 18:25 Potassium 3.4 mmol/L (3.6-5.0) L 03/22/19 08:07 Chloride 102.6 mmol/L (98-107) 03/20/19 18:25 Carbon Dioxide 26 mmol/L (22-30) 03/20/19 18:25 Anion Gap 16 mmol/L 03/20/19 18:25 BUN 6 mg/dL (9-20) L 03/20/19 18:25 Creatinine 0.7 mg/dL (0.8-1.5) L 03/20/19 18:25 Estimated GFR > 60 ml/min 03/20/19 18:25 BUN/Creatinine Ratio 9 % 03/20/19 18:25 Glucose 167 mg/dL (75-100) H 03/20/19 18:25 POC Glucose 86 (70-105) 03/25/19 08:08 Hemoglobin A1c 5.4 % (4-6) 03/20/19 18:25 Calcium 8.8 mg/dL (8.4-10.2) 03/20/19 18:25 Total Bilirubin 0.60 mg/dL (0.1-1.2) 03/20/19 18:25 AST 11 units/L (5-40) 03/20/19 18:25 ALT < 5 units/L (7-56) L 03/20/19 18:25 Alkaline Phosphatase 87 units/L (35-129) 03/20/19 18:25 Total Protein 7.0 g/dL (6.3-8.2) 03/20/19 18:25 Albumin 3.3 g/dL (3.9-5) L 03/20/19 18:25 Albumin/Globulin Ratio 0.9 % 03/20/19 18:25 Triglycerides 58 mg/dL (2-149) 03/20/19 18:25 Cholesterol 137 mg/dL (50-199) 03/20/19 18:25 LDL Cholesterol Direct 75 mg/dL (50-130) 03/20/19 18:25 HDL Cholesterol 60 mg/dL (40-59) H 03/20/19 18:25 Cholesterol/HDL Ratio 2.28 % 03/20/19 18:25 Last Vital Signs Temp 98.3 F 03/24/19 19:00 Pulse 72 03/24/19 19:11 Resp 18 03/24/19 19:00 BP 117/51 03/24/19 19:00 Pulse Ox 97 03/24/19 19:11
[2019-03-25 10:41] VITALS: BP 123/68
[2019-03-25] MEDS: THIAMINE 100 MG TAB PO SCH (10:41)
[2019-03-25] MEDS: FAMOTIDINE 20 MG TAB PO SCH (10:41)
[2019-03-25] MEDS: METOPROLOL TARTRATE 25 MG TAB PO SCH (10:41)
[2019-03-25] MEDS: amLODIPine 5 MG TAB PO SCH (10:42)
[2019-03-25] MEDS: risperiDONE 0.25 MG TAB PO SCH (10:42)
[2019-03-25] MEDS: levETIRAcetam 500 MG TAB PO SCH (10:42)
[2019-03-25] MEDS: ASPIRIN EC 81 MG TAB PO SCH (10:42)
[2019-03-25] MEDS: RIVAROXABAN 20 MG TAB PO SCH (11:00)
[2019-03-25] MEDS: LINAGLIPTIN 5 MG TAB PO SCH (11:00)
[2019-03-25] MEDS: OMEGA-3 FATTY ACIDS/FISH OIL 1 GRAM CAP PO SCH (11:00)
== END 2019-03-25 18:00 | disposition home or self-care (01) | DRG 885 ==
LOC: 5A 13:06
PROVIDERS: ADMIT Psychiatry & Neurology Psychiatry; ATTEND Psychiatry & Neurology Psychiatry
DX: F20.0 Paranoid schizophrenia (principal); E87.6 Hypokalemia; I48.91 Unspecified atrial fibrillation; F03.90 Unspecified dementia, unspecified severity, without behavioral disturbance, psychotic disturbance, mood disturbance, and anxiety; I11.0 Hypertensive heart disease with heart failure; I50.9 Heart failure, unspecified; E11.9 Type 2 diabetes mellitus without complications; K21.9 Gastro-esophageal reflux disease without esophagitis; M10.9 Gout, unspecified; Z86.73 Personal history of transient ischemic attack (TIA), and cerebral infarction without residual deficits; Z88.2 Allergy status to sulfonamides; Z79.82 Long term (current) use of aspirin; Z79.899 Other long term (current) drug therapy; Z79.4 Long term (current) use of insulin
CPT/HCPCS: 36415; 71046; 80053; 80061; 82962; 83036; 84132; 85025; G0378; J1815